=== PATIENT | female | born 1940 | race Caucasian/White ===

== ENCOUNTER 2018-05-20 05:24 | Day surgery (SDC) | payer MEDICARE ==
[2018-05-19 15:11] LABS: BASOPHILS # (AUTO) 0.1 X10'3 (0-0.2); BASOPHILS % (AUTO) 1.3 % (0-1); EOSINOPHILS # (AUTO) 0.2 X10'3 (0-0.9); EOSINOPHILS % (AUTO) 3.7 % (0-6); HEMATOCRIT 34.5 % (35.0-45.0); HEMOGLOBIN 11.3 g/dl (12.0-16.0); LYMPHOCYTES # (AUTO) 1.4 X10'3 (1.1-4.8); LYMPHOCYTES % (AUTO) 22.1 % (21-51); MEAN CORPUSCULAR HEMOGLOBIN 31.9 PG (27.0-31.0); MEAN CORPUSCULAR HGB CONC 32.8 g/dL (33.0-36.5); MEAN CORPUSCULAR VOLUME 97.3 FL (78-98); MEAN PLATELET VOLUME 7.7 FL (7.4-10.4); MONOCYTES # (AUTO) 0.6 X10'3 (0-0.9); MONOCYTES % (AUTO) 9.5 % (2-12); NEUTROPHILS % (AUTO) 63.4 % (42-75); PLATELET COUNT 301 X10'3 (140-440); RED BLOOD COUNT 3.55 X10'6 (4.20-5.60); RED CELL DISTRIBUTION WIDTH 13.6 % (11.5-14.5); WHITE BLOOD COUNT 6.3 X10'3 (4.5-11.0)
[2018-05-19 15:22] LABS: ALANINE AMINOTRANSFERASE 20 U/L (12-78); ALBUMIN 3.7 G/DL (3.4-5.0); ALBUMIN/GLOBULIN RATIO 1.1 (1.1-1.5); ALKALINE PHOSPHATASE 86 IU/L (46-116); ANION GAP 11 (8-16); ASPARTATE AMINO TRANSFERASE 18 U/L (10-37); BILIRUBIN,TOTAL 0.3 MG/DL (0.1-1.0); BLOOD UREA NITROGEN 13 MG/DL (7-18); BUN/CREATININE RATIO 12.5 (6.6-38.0); CALCIUM 8.9 MG/DL (8.5-10.1); CHLORIDE 106 MMOL/L (99-107); CREATININE 1.04 MG/DL (0.40-0.90); GLUCOSE 93 MG/DL (70-104); POTASSIUM 3.6 MMOL/L (3.5-5.1); SODIUM 145 MMOL/L (135-145); TOTAL CARBON DIOXIDE 28.3 MMOL/L (24-32); TOTAL PROTEIN 7.1 G/DL (6.4-8.2); eGFR 52 ML/MIN
[2018-05-19 15:32] LABS: INR 1.1 INR; PARTIAL THROMBOPLASTIN TIME 28 SECONDS (22-32); PROTHROMBIN TIME 10.8 SECONDS (9.0-12.0)
[~2018-05-20] VITALS: Ht 172.7 cm; Wt 92.7 kg
[2018-05-20] VITALS (14 sets, daily range): BP systolic 135–161; BP diastolic 65–80
[~2018-05-20 05:24] MED LIST: AMLO10TA4 PO; ENALAPRIL PO; METOPROLOL PO; SIMV40TA PO
[2018-05-20] MEDS ORDERED: normal saline 1000ml 1,000 ML IV SCH (05:55)
[2018-05-20] MEDS ORDERED: nitroGLYCERIN 0.4mg SUBLingual tab SL PRN (05:55)
[2018-05-20] MEDS ORDERED: LORazepam 0.5 MG tablet PO PRN (05:55)
[2018-05-20] MEDS ORDERED: diphenhydrAMINE 25mg capsule PO PRN (05:55)
[2018-05-20] MEDS ORDERED: CLOP75TA15 PO (06:28)
[2018-05-20] MEDS ORDERED: LABE100T5 PO (06:28)
[2018-05-20] MEDS ORDERED: CYAN-19 PO (06:28)
[2018-05-20] MEDS ORDERED: MULT-955 PO (06:28)
[2018-05-20] MEDS ORDERED: GLUC-87 PO (06:28)
[2018-05-20] MEDS ORDERED: LOSA50TA3 PO (06:28)
[2018-05-20] MEDS ORDERED: BETA1TAB20 PO (06:28)
[2018-05-20] MEDS ORDERED: fentaNYL/PF 50MCG/1 ML 2ML syringe ONE (08:53)
[2018-05-20] MEDS ORDERED: midazolam 2 mg/2 ml injection ONE (08:54)
[2018-05-20] MEDS ORDERED: LIDOcaine 1% (10mg/ml)w/preservative injection 20ml MDV ONE (08:54)
[2018-05-20] MEDS ORDERED: iohexol 350MG/ML 100ml bottle IV ONE (08:54)
[2018-05-20] MEDS ORDERED: iohexol 350 MG/ML 50ML vial IV ONE (08:54)
[2018-05-20] MEDS ORDERED: acetaminophen 325mg tablet PO PRN (11:45)
[2018-05-20] MEDS ORDERED: HYDROcodone/acetaminophen 5mg/325mg tablet PO PRN (11:45)
[2018-05-20] MEDS ORDERED: OXAZEpam 15mg capsule PO PRN (11:45)
[2018-05-20] MEDS ORDERED: ondansetron/PF 4mg/2ml inj IV PRN (11:45)
[2018-05-20] MEDS ORDERED: HYDROcodone/acetaminophen 10/325mg tab PO PRN (11:45)
[2018-05-20] MEDS ORDERED: proCHLORperazine 10 MG/2 ml inj IV PRN (11:45)
== END 2018-05-20 16:35 | disposition home or self-care (01) ==
LOC: SSTAY O 05:24
PROVIDERS: ATTEND Internal Medicine Cardiovascular Disease
DX: I25.10 Atherosclerotic heart disease of native coronary artery without angina pectoris (principal); I70.291 Other atherosclerosis of native arteries of extremities, right leg; I10 Essential (primary) hypertension; E78.00 Pure hypercholesterolemia, unspecified; Z79.899 Other long term (current) drug therapy; Z86.73 Personal history of transient ischemic attack (TIA), and cerebral infarction without residual deficits; Z79.01 Long term (current) use of anticoagulants
CPT/HCPCS: 36415; 71046; 80053; 85025; 85610; 85730; 93458; 99152; 99153; A6257; J1644; J2001; J2250; J3010; J7030; Q0163; Q9967; A4620; C1760; C1769

== ENCOUNTER 2018-06-03 06:49 | Day surgery (SDC) | payer MEDICARE ==
[2018-06-01 10:33] LABS: BASOPHILS # (AUTO) 0.1 X10'3 (0-0.2); BASOPHILS % (AUTO) 0.8 % (0-1); EOSINOPHILS # (AUTO) 0.2 X10'3 (0-0.9); EOSINOPHILS % (AUTO) 3.2 % (0-6); HEMOGLOBIN 11.3 g/dl (12.0-16.0); LYMPHOCYTES # (AUTO) 1.2 X10'3 (1.1-4.8); LYMPHOCYTES % (AUTO) 16.3 % (21-51); MEAN CORPUSCULAR HEMOGLOBIN 32.4 PG (27.0-31.0); MEAN CORPUSCULAR HGB CONC 33.3 g/dL (33.0-36.5); MEAN CORPUSCULAR VOLUME 97.4 FL (78-98); MEAN PLATELET VOLUME 7.7 FL (7.4-10.4); MONOCYTES # (AUTO) 0.5 X10'3 (0-0.9); MONOCYTES % (AUTO) 7.2 % (2-12); NEUTROPHILS # (AUTO) 5.1 X10'3 (1.8-7.7); NEUTROPHILS % (AUTO) 72.5 % (42-75); PLATELET COUNT 302 X10'3 (140-440); RED BLOOD COUNT 3.49 X10'6 (4.20-5.60); RED CELL DISTRIBUTION WIDTH 13.9 % (11.5-14.5); WHITE BLOOD COUNT 7.1 X10'3 (4.5-11.0)
[2018-06-01 10:44] LABS: INR 1.1 INR; PARTIAL THROMBOPLASTIN TIME 28 SECONDS (22-32)
[2018-06-01 10:47] LABS: ALANINE AMINOTRANSFERASE 20 U/L (12-78); ALBUMIN 3.5 G/DL (3.4-5.0); ALKALINE PHOSPHATASE 79 IU/L (46-116); ANION GAP 8 (8-16); ASPARTATE AMINO TRANSFERASE 17 U/L (10-37); BILIRUBIN,TOTAL 0.3 MG/DL (0.1-1.0); BLOOD UREA NITROGEN 20 MG/DL (7-18); BUN/CREATININE RATIO 17.9 (6.6-38.0); CALCIUM 8.9 MG/DL (8.5-10.1); CHLORIDE 108 MMOL/L (99-107); CREATININE 1.12 MG/DL (0.40-0.90); GLUCOSE 116 MG/DL (70-104); POTASSIUM 3.6 MMOL/L (3.5-5.1); SODIUM 144 MMOL/L (135-145); TOTAL CARBON DIOXIDE 27.9 MMOL/L (24-32); TOTAL PROTEIN 6.9 G/DL (6.4-8.2); eGFR 47 ML/MIN
[~2018-06-03] VITALS: Ht 172.7 cm; Wt 92.7 kg
[2018-06-03] VITALS (14 sets, daily range): BP systolic 131–171; BP diastolic 62–98
[~2018-06-03 06:49] MED LIST changes: +BETA1TAB20 PO; +CLOP75TA15 PO; +CYAN-19 PO; -ENALAPRIL PO; +GLUC-87 PO; +LABE100T5 PO; +LOSA50TA3 PO; -METOPROLOL PO; +MULT-955 PO
[2018-06-03] MEDS ORDERED: nitroGLYCERIN 0.4mg SUBLingual tab SL PRN (07:15)
[2018-06-03] MEDS ORDERED: normal saline 1000ml 1,000 ML IV SCH ×2 (07:15→11:50)
[2018-06-03] MEDS ORDERED: LORazepam 0.5 MG tablet PO PRN (07:15)
[2018-06-03] MEDS ORDERED: diphenhydrAMINE 25mg capsule PO PRN (07:15)
[2018-06-03] MEDS ORDERED: midazolam 2 mg/2 ml injection ONE (08:55)
[2018-06-03] MEDS ORDERED: LIDOcaine 1% (10mg/ml)w/preservative injection 20ml MDV ONE (08:56)
[2018-06-03] MEDS ORDERED: fentaNYL/PF 50MCG/1 ML 2ML syringe ONE (08:56)
[2018-06-03] MEDS ORDERED: iohexol 350 MG/ML 50ML vial IV ONE (08:56)
[2018-06-03] MEDS ORDERED: iohexol 350MG/ML 100ml bottle IV ONE (08:56)
[2018-06-03] MEDS ORDERED: iohexol 350 MG/1 ML 200ml bottle ONE (09:51)
[2018-06-03] MEDS ORDERED: heparin 1,000unit/ml 10ml vial 10 ML ONE (10:05)
[2018-06-03] MEDS ORDERED: tirofiban 5mg in NS 100mL 100 ML IV ONE (10:05)
[2018-06-03] MEDS ORDERED: clopidogrel 300mg tablet ONE (10:35)
[2018-06-03] MEDS ORDERED: HYDROcodone/acetaminophen 5mg/325mg tablet PO PRN (11:50)
[2018-06-03] MEDS ORDERED: OXAZEpam 15mg capsule PO PRN (11:50)
[2018-06-03] MEDS ORDERED: ondansetron/PF 4mg/2ml inj IV PRN (11:50)
[2018-06-03] MEDS ORDERED: proCHLORperazine 10 MG/2 ml inj IV PRN (11:50)
[2018-06-03] MEDS ORDERED: HYDROcodone/acetaminophen 10/325mg tab PO PRN (11:50)
== END 2018-06-03 17:52 | disposition home or self-care (01) ==
LOC: SSTAY O 06:49
PROVIDERS: ATTEND Internal Medicine Cardiovascular Disease
DX: I25.118 Atherosclerotic heart disease of native coronary artery with other forms of angina pectoris (principal); I10 Essential (primary) hypertension; E78.5 Hyperlipidemia, unspecified; Z79.82 Long term (current) use of aspirin; Z79.899 Other long term (current) drug therapy; Z79.01 Long term (current) use of anticoagulants
CPT/HCPCS: 36415; 80053; 85025; 85610; 85730; 93005; 99152; 99153; A6257; C1874; C9600; J1644; J2001; J2250; J3010; J3246; J7030; Q0163; Q9967; A4620; C1760; C1769

== ENCOUNTER 2018-07-15 05:22 | Inpatient (IN) | payer MEDICARE, OTHER | END 2018-07-16 13:50 | disposition home or self-care (01) | LOC: PAS IN 05:22 → ICU 2S 11:53 → MED 3N 07-16 11:30 | PROC: 03CL0ZZ Extirpation of Matter from Left Internal Carotid Artery, Open Approach (ICD-10-PCS; principal; 2018-07-15 07:30) | DX: I65.22 Occlusion and stenosis of left carotid artery (principal) ==